=== PATIENT | male | born 1955 | race Caucasian/White ===

== ENCOUNTER → 2020-11-17 | Outpatient (CLI) | payer MEDICARE | LOC: LAB FS 14:01 | PROVIDERS: ATTEND Urology | DX: N42.9 Disorder of prostate, unspecified (principal) | CPT/HCPCS: 36415; 84153 ==

== ENCOUNTER 2023-05-30 16:08 | Observation (INO) | payer MEDICARE ==
[~2023-05-30] VITALS: Ht 167.7 cm; Wt 97.3 kg
[2023-05-30] MEDS ORDERED: NS IV 1000 ML 1,000 ML IV STA (16:26)
[2023-05-30] MEDS ORDERED: KETOROLAC INJ 15 MG/ML VIAL IVP STA (16:26)
--- NOTE | 2023-05-30 16:26 | ED Abdominal Pain ---
General Chief Complaint: Abdominal/GI Problems Stated Complaint: ABD PAIN Source of Information: Patient History of Present Illness Date Seen by Provider: May 30, 2023 Time Seen by Provider: 16:09 Initial Comments 68-year-old male presenting with complaints of abdominal pain and fever up to 101 this week. He has had pain for the last 5 days. When he went to the clinic today they sent him to the emergency department because he felt like he had appendicitis. He has pain in the right upper quadrant on exam. He states he had fever to 101 2 days ago. He did not have an appetite today and has not eaten since he had some soup night. He did drink some coffee this morning but has not eaten anything. He has had some diarrhea but none today. He denies any pain or burning with urination. He is up-to-date on vaccinations for flu, COVID, RSV. He had a swab for COVID and influenza that was negative through the clinic and he had a urinalysis that he reports they told him was negative. He denies any prior abdominal surgeries Timing/Duration: 5-6 Days Severity/Quality: Severe, Sharp Location: RUQ Activities at Onset: None Modifying Factors: Improves With Analgesics; Worsens With Movement, Worsens With Palpation Associated Symptoms: No Back Pain, No Chest Pain, No Diaphoresis; Fever/Chills; No Headache, No Heartburn, No Nausea/Vomiting, No Rash, No Shortness of Air, No Syncope, No Weakness Allergies and Home Medications Allergies Coded Allergies: No Known Drug Allergies (Unverified , 05/30/23) Patient Home Medication List Home Medication List Reviewed: Yes Review of Systems Review of Systems Constitutional: see HPI EENTM: No Symptoms Reported Respiratory: No Symptoms Reported Cardiovascular: No Symptoms Reported Gastrointestinal: See HPI Genitourinary: Denies Flank Pain, Denies Pain, Denies Urgency Musculoskeletal: no symptoms reported Skin: No rash Psychiatric/Neurological: Denies Headache Past Xeoemmt-Oubhgy-Floobw Hx Patient Social History Tobacco Use?: No Use of E-Cig and/or Vaping dev: No Substance use?: No Physical Exam Vital Signs Vital Signs - First Documented 05/30/23 16:12 Temp 37.6 Pulse 108 Resp 16 B/P (MAP) 140/81 (100) Pulse Ox 96 O2 Delivery Room Air Capillary Refill : Height/Weight/BMI Height: '" Weight: lbs. oz. kg; BMI Method: General Appearance: WD/WN, no apparent distress, obese HEENT: PERRL/EOMI, pharynx normal Neck: non-tender, full range of motion, supple Respiratory: chest non-tender, lungs clear, normal breath sounds, no respiratory distress, no accessory muscle use Cardiovascular: normal peripheral pulses, regular rate, rhythm Gastrointestinal: soft, no pulsatile mass, abnormal bowel sounds (hypoactive); No guarding, No rebound; tenderness (RUQ abdominal pain with positive Urbina's) Rectal: deferred Extremities: normal range of motion, non-tender, normal capillary refill Neurologic/Psychiatric: alert, oriented x 3 Skin: normal color, warm/dry Focused Exam Lactate Level 05/30/23 16:15: Lactic Acid Level 1.06 Lactic Acid Level Laboratory Tests Test 05/30/23 16:15 Lactic Acid Level 1.06 MMOL/L (0.50-2.00) Progress/Results/Core Measures Results/Orders Lab Results Laboratory Tests Test 05/30/23 16:15 Range/Units White Blood Count 16.9 H 4.3-11.0 10^3/uL Red Blood Count 4.05 L 4.30-5.52 10^6/uL Hemoglobin 12.6 L 13.3-17.7 g/dL Hematocrit 38 L 40-54 % Mean Corpuscular Volume 93 80-99 fL Mean Corpuscular Hemoglobin 31 25-34 pg Mean Corpuscular Hemoglobin Concent 34 32-36 g/dL Red Cell Distribution Width 13.3 10.0-14.5 % Platelet Count 778 H 130-400 10^3/uL Mean Platelet Volume 9.8 9.0-12.2 fL Immature Granulocyte % (Auto) 1 % Neutrophils (%) (Auto) 83 H 42-75 % Lymphocytes (%) (Auto) 6 L 12-44 % Monocytes (%) (Auto) 9 0-12 % Eosinophils (%) (Auto) 0 0-10 % Basophils (%) (Auto) 0 0-10 % Neutrophils # (Auto) 14.1 H 1.8-7.8 10^3/uL Lymphocytes # (Auto) 1.0 1.0-4.0 10^3/uL Monocytes # (Auto) 1.6 H 0.0-1.0 10^3/uL Eosinophils # (Auto) 0.1 0.0-0.3 10^3/uL Basophils # (Auto) 0.0 0.0-0.1 10^3/uL Immature Granulocyte # (Auto) 0.1 0.0-0.1 10^3/uL Neutrophils % (Manual) 85 % Lymphocytes % (Manual) 9 % Monocytes % (Manual) 6 % Sodium Level 132 L 135-145 MMOL/L Potassium Level 4.0 3.6-5.0 MMOL/L Chloride Level 96 L 98-107 MMOL/L Carbon Dioxide Level 23 21-32 MMOL/L Anion Gap 13 5-14 MMOL/L Blood Urea Nitrogen 16 7-18 MG/DL Creatinine 0.89 0.60-1.30 MG/DL Estimat Glomerular Filtration Rate 92 BUN/Creatinine Ratio 18 Glucose Level 114 H 70-105 MG/DL Lactic Acid Level 1.06 0.50-2.00 MMOL/L Calcium Level 9.7 8.5-10.1 MG/DL Corrected Calcium 9.9 8.5-10.1 MG/DL Total Bilirubin 0.5 0.1-1.0 MG/DL Aspartate Amino Transf (AST/SGOT) 22 5-34 U/L Alanine Aminotransferase (ALT/SGPT) 20 0-55 U/L Alkaline Phosphatase 73 40-136 U/L C-Reactive Protein 40.00 H <0.50 MG/DL Total Protein 7.4 6.4-8.2 GM/DL Albumin 3.7 3.2-4.5 GM/DL Lipase 17 8-78 U/L My Orders Orders - MIRANDA CAMACHO MD Comprehensive Metabolic Panel (05/30/23 16:20) Lipase (05/30/23 16:20) Ed Iv/Invasive Line Start (05/30/23 16:20) Cbc And Automated Diff (05/30/23 16:20) Ct Abdomen/Pelvis W (05/30/23 16:20) Blood Culture (05/30/23 16:20) Crp Fs (05/30/23 16:20) Lactic Acid Analyzer (05/30/23 16:20) Ns Iv 1000 Ml (Ns Iv 1000 Ml) (05/30/23 16:26) Ketorolac Injection (Ketorolac Injection (05/30/23 16:26) Manual Differential (05/30/23 16:15) Iohexol Injection (Omnipaque 350 Mg/Ml 1 (05/30/23 16:45) Received Contrast (Hold Metformin- Contr (05/30/23 16:45) Ns (Ivpb) 100 Ml (Sodium Chloride 0.9% 1 (05/30/23 16:45) Ed Admission (Communication) (05/30/23 17:28) Medications Given in ED Current Medications Medications Dose Ordered Sig/David Route Start Time Stop Time Status Last Admin Dose Admin Iohexol 100 ml ONCE ONCE IV 05/30/23 16:45 05/30/23 16:46 DC 05/30/23 16:59 100 ML Sodium Chloride 100 ml ONCE ONCE IV 05/30/23 16:45 05/30/23 16:46 DC 05/30/23 16:59 100 ML Vital Signs/I&O 05/30/23 05/30/23 05/30/23 16:12 17:06 18:13 Temp 37.6 38.2 Pulse 108 107 103 Resp 16 18 18 B/P (MAP) 140/81 (100) 131/71 (91) 130/65 Pulse Ox 96 94 94 O2 Delivery Room Air Room Air Room Air Progress Progress Note #1: Progress Note Differential diagnosis includes viral syndrome, cholecystitis, cholelithiasis, colitis, diverticulitis, appendicitis, gastritis. Establish peripheral IV access and send labs for complete blood count, comprehen sive metabolic profile, blood cultures, lactic acid, CRP, lipase. Since he had urine and COVID/flu swab done at the clinic will not repeat these. Obtain CT scan of the abdomen and pelvis with IV contrast to evaluate for possible intra- abdominal pathology. Administer normal saline 1 L IV fluid bolus for hydration, Toradol 15 mg IV for pain. Progress Note #2: Time: 16:43 Progress Note Complete blood count shows elevated white blood cell count of 16.9 thousand. ANC hemoglobin is low normal at 12.6. He does have elevated platelets to 778 which could be a reactive process. His automated differential shows 83% neutrophils and 6% lymphocytes Progress Note #3: Time: 17:12 Progress Note Comprehensive metabolic profile does not show acute significant electrolyte abnormality. Lactic acid is normal at 1.06 and CRP is greatly elevated at 40. Lipase and LFTs are not elevated. On my personal review and interpretation of CT scan of abdomen/pelvis with IV contrast he has pericholecystic fluid, edema and dilated gallbladder with a few calcification seen within it. Waiting on Radiology interpretation. Pain improved from Toradol but still present, especially with palpation. 1722 d/w Dr. Agee, wind commissioning technician surgeon. Reviewed patient history and presentation with findings for acute cholecystitis on his CT scan. Radiology report is still pending. He accepted him for admission and will check with Dr. Oconnor directly to see about consult versus adequate with her. She is covering for the [facility] service and the patient follows with Dr. Fry. He voiced that he would be ok with patient being driven down by family rather than having to wait on EMS for transport. He did not feel like he needed antibiotics emergently here but could arrange for those after he got to room in [place]. 1726 D/w Dr. Oconnor hospitalist for [facility] and she will admit the patient to [facility] service as observation patient with plans for surgery for his gallbladder. She will place Queued orders in the system. Diagnostic Imaging Diagonstic Imaging: CT Plain Films/CT/US/NM/MRI: abdomen, pelvis Comments [facility]. [place], [place] NAME: [facility] REC#: [id number] PT STATUS: REG ER : 1955 PHYSICIAN: MIRANDA CAMACHO MD ADMIT DATE: 05/30/23/ER FS Signed Date of Exam:05/30/23 CT ABDOMEN/PELVIS W PROCEDURE: CT abdomen and pelvis with contrast. TECHNIQUE: Multiple contiguous axial images were obtained through the abdomen and pelvis after administration of intravenous contrast. Auto Exposure Controls were utilized during the CT exam to meet ALARA standards for radiation dose reduction. All CT scans use one or more of the following dose optimizing techniques: automated exposure control, MA and/or KvP adjustment based on patient size and exam type or iterative reconstruction. INDICATION: Right-sided abdominal pain, fever. COMPARISON: None available. FINDINGS: Thin calcified pleural plaques are noted bilaterally, particularly on the right. Pericardial calcifications are present. Mild right basilar scarring and/or atelectasis. The gallbladder is abnormally distended measuring near 13 cm. This is associated with gallstones and fat stranding about the gallbladder. Diffusely decreased density throughout the liver. The spleen is unremarkable. The adrenal glands are unremarkable. The pancreas is unremarkable. Mild bilateral perinephric fat stranding. 5 mm calculus within the inferior pole of the left kidney, nonobstructing. 4.4 cm peripherally calcified hypodensity is noted within the inferior pole of the left kidney. No hydroureteronephrosis. Moderate vascular calcifications without aneurysmal dilatation of the abdominal aorta. The appendix is unremarkable. The urinary bladder is unremarkable. Moderate-sized right and small-sized left fat-containing inguinal hernias. Colonic diverticulosis without CT evidence of diverticulitis. No bowel obstruction or pneumatosis. No significant adenopathy, free air, or free fluid within the abdomen or pelvis. Scattered osseous degenerative changes without acute osseous abnormality. IMPRESSION: Findings concerning for acute cholecystitis. Recommend clinical correlation. If there remains clinical uncertainty, further evaluation with right upper quadrant ultrasound could be obtained. Nonobstructing left renal calculus. 4.4 cm peripherally calcified hypodensity involving the left kidney, felt to relate to a Bosniak 2F cyst. Recommend follow-up CT in six months. Calcified pleural plaques and pericardial plaques, potentially related to prior asbestos exposure or sequelae of prior pericarditis/pleural effusions. Mild fatty infiltration of the liver. Dictated by: Dictated on workstation # [id number] Dict: 05/30/23 171 Trans: 05/30/23 173 [id number] [id number] Interpreted by: TASIA CALABRESE MD Electronically signed by: TASIA CALABRESE MD 05/30/231730 Reviewed: Reviewed by Me Departure Communication (Admissions) Time/Spoke to Admitting Phy: 17:23 d/w Dr. Agee, wind commissioning technician surgeon. Reviewed patient history and presentation with findings for acute cholecystitis on his CT scan. Radiology report is still pending. He accepted him for admission and will check with Dr. Oconnor directly to see about consult versus adequate with her. She is covering for the [facility] service and the patient follows with Dr. Fry. 1727 D/w Dr. Oconnor hospitalist for [facility] and she will admit the patient to [facility] service as observation patient with plans for surgery for his gallbladder. She will place Queued orders in the system. Impression Primary Impression: Acute cholecystitis Additional Impression: Right upper quadrant abdominal pain Disposition: 30 STILL A PATIENT Condition: Stable Admissions Decision to Admit Reason: Admit from ER (General) Decision to Admit/Date: May 30, 2023 Time/Decision to Admit Time: 17:23 Departure-Patient Inst. Referrals: WANAD FRY MD (PCP/Family) Primary Care Physician MIRANDA CAMACHO MD May 30, 2023 16:25
[2023-05-30 16:27] LABS: BASOPHILS % (AUTO) 0 % (0-10); EOSINOPHILS # (AUTO) 0.1 10^3/uL (0.0-0.3); EOSINOPHILS % (AUTO) 0 % (0-10); HEMATOCRIT 38 % (40-54); HEMOGLOBIN 12.6 g/dL (13.3-17.7); LYMPHOCYTES % (AUTO) 6 % (12-44); MEAN CORPUSCULAR HEMOGLOBIN 31 pg (25-34); MEAN CORPUSCULAR HGB CONC 34 g/dL (32-36); MEAN CORPUSCULAR VOLUME 93 fL (80-99); MEAN PLATELET VOLUME 9.8 fL (9.0-12.2); MONOCYTES # (AUTO) 1.6 10^3/uL (0.0-1.0); MONOCYTES % (AUTO) 9 % (0-12); NEUTROPHILS # (AUTO) 14.1 10^3/uL (1.8-7.8); NEUTROPHILS % (AUTO) 83 % (42-75); PLATELET COUNT 778 10^3/uL (130-400); WHITE BLOOD COUNT 16.9 10^3/uL (4.3-11.0)
[2023-05-30 16:45] LABS: BILIRUBIN,TOTAL 0.5 MG/DL (0.1-1.0); CALCIUM 9.7 MG/DL (8.5-10.1)
[2023-05-30] MEDS ORDERED: HOLD METFORMIN - RECEIVED CONTRAST 20 ML VIAL IV SCH (16:45)
[2023-05-30] MEDS ORDERED: IOHEXOL 350 MG/ML 100 ML (OMNIPAQUE 350) VIAL IV ONE (16:45)
[2023-05-30] MEDS ORDERED: NS 100 ML (IVPB) BAG IV ONE (16:45)
[2023-05-30 16:48] LABS: LYMPHOCYTES % (MANUAL) 9 %; MONOCYTES % (MANUAL) 6 %; NEUTROPHILS % (MANUAL) 85 %
[2023-05-30 16:50] LABS: CREATININE SERUM 0.89 MG/DL (0.60-1.30)
[2023-05-30 16:51] LABS: ALBUMIN 3.7 GM/DL (3.2-4.5); TOTAL PROTEIN 7.4 GM/DL (6.4-8.2)
--- NOTE | 2023-05-30 17:21 | Diagnostic Imaging Report ---
PROCEDURE: CT abdomen and pelvis with contrast. TECHNIQUE: Multiple contiguous axial images were obtained through the abdomen and pelvis after administration of intravenous contrast. Auto Exposure Controls were utilized during the CT exam to meet ALARA standards for radiation dose reduction. All CT scans use one or more of the following dose optimizing techniques: automated exposure control, MA and/or KvP adjustment based on patient size and exam type or iterative reconstruction. INDICATION: Right-sided abdominal pain, fever. COMPARISON: None available. FINDINGS: Thin calcified pleural plaques are noted bilaterally, particularly on the right. Pericardial calcifications are present. Mild right basilar scarring and/or atelectasis. The gallbladder is abnormally distended measuring near 13 cm. This is associated with gallstones and fat stranding about the gallbladder. Diffusely decreased density throughout the liver. The spleen is unremarkable. The adrenal glands are unremarkable. The pancreas is unremarkable. Mild bilateral perinephric fat stranding. 5 mm calculus within the inferior pole of the left kidney, nonobstructing. 4.4 cm peripherally calcified hypodensity is noted within the inferior pole of the left kidney. No hydroureteronephrosis. Moderate vascular calcifications without aneurysmal dilatation of the abdominal aorta. The appendix is unremarkable. The urinary bladder is unremarkable. Moderate-sized right and small-sized left fat-containing inguinal hernias. Colonic diverticulosis without CT evidence of diverticulitis. No bowel obstruction or pneumatosis. No significant adenopathy, free air, or free fluid within the abdomen or pelvis. Scattered osseous degenerative changes without acute osseous abnormality. IMPRESSION: Findings concerning for acute cholecystitis. Recommend clinical correlation. If there remains clinical uncertainty, further evaluation with right upper quadrant ultrasound could be obtained. Nonobstructing left renal calculus. 4.4 cm peripherally calcified hypodensity involving the left kidney, felt to relate to a Bosniak 2F cyst. Recommend follow-up CT in six months. Calcified pleural plaques and pericardial plaques, potentially related to prior asbestos exposure or sequelae of prior pericarditis/pleural effusions. Mild fatty infiltration of the liver. Dictated by: Dictated on workstation # [id number]
[2023-05-30 20:07] VITALS: BP 128/71
[2023-05-30] MEDS ORDERED: diphenhydrAMINE INJ 50 MG/ML VIAL IVP PRN (20:15)
[2023-05-30] MEDS ORDERED: oxyCODONE IMMEDIATE RELEASE 5 MG TABLET PO PRN (20:15)
[2023-05-30] MEDS ORDERED: BISACODYL 10 MG SUPPOSITORY PR PRN (20:15)
[2023-05-30] MEDS ORDERED: ONDANSETRON INJECTION 4 MG/2 ML (SDV) IV PRN (20:15)
[2023-05-30] MEDS ORDERED: MELATONIN 3 MG TABLET PO PRN (20:15)
[2023-05-30] MEDS ORDERED: ONDANSETRON 4 MG ORAL DISSOLVE TABLET PO PRN (20:15)
[2023-05-30] MEDS ORDERED: diphenhydrAMINE 25 MG TABLET PO PRN (20:15)
[2023-05-30] MEDS ORDERED: LACTULOSE SYRUP 10GM/15ML 30ML UDC PO PRN (20:15)
[2023-05-30] MEDS ORDERED: ANTACID SUSPENSION 30 ML UDC PO PRN (20:15)
[2023-05-30] MEDS ORDERED: NS IV 1000 ML 1,000 ML ONE (20:43)
[2023-05-30] MEDS: NS IV 1000 ML 1,000 ML IV SCH (20:56)
[2023-05-30] MEDS ORDERED: PIPERACILLIN/Tazobactam 4.5 GM in NS (IVPB) 100 ML 100 ML IV ONE (21:30)
[2023-05-30] MEDS: ACETAMINOPHEN 325 MG TABLET PO PRN (21:44)
[2023-05-30] MEDS: HYDROmorphone INJECTION 2 MG/ML VIAL IV PRN (22:50)
[2023-05-30] MEDS: DOCUSATE SODIUM 100 MG CAPSULE PO SCH (22:53)
[2023-05-30 23:18] VITALS: BP 118/68
[2023-05-30] MEDS ORDERED: FENO160T12 PO (23:38)
[2023-05-30] MEDS ORDERED: TMSL.4C PO (23:40)
[2023-05-30] MEDS ORDERED: TRIA1TAB3 PO (23:40)
[2023-05-30] MEDS ORDERED: FLUT9.9S NS (23:41)
[2023-05-30] MEDS ORDERED: SIMV40TA25 PO (23:41)
[2023-05-31] VITALS (12 sets, daily range): BP systolic 118–146; BP diastolic 63–87
[2023-05-31] MEDS: PIPERACILLIN/Tazobactam 4.5 GM in NS (IVPB) 100 ML 100 ML IV SCH ×3 (03:35→19:37)
[2023-05-31] MEDS: HYDROmorphone INJECTION 2 MG/ML VIAL IV PRN ×3 (03:35→16:21)
[2023-05-31] MEDS: NS IV 1000 ML 1,000 ML IV SCH ×3 (03:36→19:36)
[2023-05-31 05:53] LABS: BASOPHILS % (AUTO) 0 % (0-10); EOSINOPHILS # (AUTO) 0.1 10^3/uL (0.0-0.3); EOSINOPHILS % (AUTO) 1 % (0-10); HEMATOCRIT 34 % (40-54); HEMOGLOBIN 11.2 g/dL (13.3-17.7); LYMPHOCYTES # (AUTO) 1.1 10^3/uL (1.0-4.0); LYMPHOCYTES % (AUTO) 10 % (12-44); MEAN CORPUSCULAR HEMOGLOBIN 30 pg (25-34); MEAN CORPUSCULAR HGB CONC 33 g/dL (32-36); MEAN CORPUSCULAR VOLUME 93 fL (80-99); MONOCYTES # (AUTO) 1.1 10^3/uL (0.0-1.0); MONOCYTES % (AUTO) 9 % (0-12); NEUTROPHILS # (AUTO) 9.1 10^3/uL (1.8-7.8); NEUTROPHILS % (AUTO) 79 % (42-75); PLATELET COUNT 723 10^3/uL (130-400); WHITE BLOOD COUNT 11.6 10^3/uL (4.3-11.0)
[2023-05-31 06:08] LABS: ALBUMIN 3.2 GM/DL (3.2-4.5); POTASSIUM 3.6 MMOL/L (3.6-5.0)
[2023-05-31 06:09] LABS: CALCIUM 8.7 MG/DL (8.5-10.1)
[2023-05-31 06:10] LABS: TOTAL PROTEIN 6.3 GM/DL (6.4-8.2)
[2023-05-31 06:12] LABS: BILIRUBIN,TOTAL 0.8 MG/DL (0.1-1.0)
[2023-05-31 06:14] LABS: CREATININE SERUM 0.85 MG/DL (0.60-1.30)
--- NOTE | 2023-05-31 08:02 | History & Physical-Hospitalist ---
LINWOOD JOSUE MD,RESIDENT 05/31/23 0802: History of Present Illness HPI/Chief Complaint CC: abdominal pain and fever HPI: Pt is a 68-year-old male who presents to the ED with complaints of abdominal pain and fever up to 101 this week. He has had the abdominal pain for the last 5 days. When he went to the clinic 05/30, they sent him to the emergency department because he felt like he had appendicitis. He has pain in the right upper quadrant on exam. He states he had fever to 101 3 days ago. He has decreased PO intake over the lat few days for decreased appetite and abdominal pain. He has had some diarrhea but none today. He denies any pain or burning with urination. He is up-to-date on vaccinations for flu, COVID, RSV. He had a swab for COVID and influenza that was negative through the clinic and he had a urinalysis that he reports they told him was negative. He denies any prior abdominal surgeries. Will admit for further management. Source: patient Date Seen 05/31/23 Time Seen by a Provider: 08:00 Attending Physician Alfredo Arceo MD PCP Admitting Physician: Trinity Ramos DO Attending Physician: Trinity Ramos DO Referring Physician Date of Admission May 30, 2023 at 19:46 Home Medications & Allergies Home Medications Reviewed patient Home Medication Reconciliation performed by pharmacy medication reconciliations vending service technician and/or nursing. Patients Allergies have been reviewed. Allergies Allergies Coded Allergies No Known Drug Allergies ([id number]/20/23) Past Jiwgfcp-Drqley-Oecwra Hx Patient Social History Tobacco Use?: No Smoking Status: Never a Smoker Smokeless Tobacco Frequency: Never a User Use of E-Cig and/or Vaping dev: No Substance use?: No Alcohol Use?: No Pt feels they are or have been: No Immunizations Up To Date Date of Influenza Vaccine: May 22, 2023 First/Initial COVID19 Vaccinat: vaccinated Current Status Advance Directives: Yes Advance Directive Location: Home Communicates: Verbally Primary Language: Arabic Preferred Spoken Language: Arabic Is interpretation needed?: No Implanted or Applied Medical D: Orthopedic hardware Review of Systems Constitutional: no symptoms reported EENTM: no symptoms reported Respiratory: no symptoms reported Cardiovascular: no symptoms reported Gastrointestinal: abdominal pain (RUQ), diarrhea, loss of appetite Genitourinary: no symptoms reported Musculoskeletal: no symptoms reported Skin: no symptoms reported Psychiatric/Neurological: No Symptoms Reported Physical Exam Physical Exam Vital Signs Vital Signs - First Documented 05/30/23 05/31/23 16:12 07:58 Temp 37.6 Pulse 108 Resp 16 B/P (MAP) 140/81 (100) Pulse Ox 96 O2 Delivery Room Air O2 Flow Rate 0.00 Capillary Refill : Less Than 3 Seconds Height, Weight, BMI Height: '" Weight: lbs. oz. kg; 34.59 BMI Method: General Appearance: No Apparent Distress Eyes: Bilateral Eye EOMI HEENT: Normal ENT Inspection Neck: Full Range of Motion Respiratory: Lungs Clear, Normal Breath Sounds, No Accessory Muscle Use, No Respiratory Distress Cardiovascular: Regular Rate, Rhythm Gastrointestinal: Abnormal Bowel Sounds (hyperactive), Distended, Tenderness Extremity: Normal Range of Motion, Non Tender Neurologic/Psychiatric: Alert, Oriented x3, Normal Mood/Affect Skin: Warm/Dry Results Results/Procedures Labs Laboratory Tests 05/30/23 16:15 05/31/23 05:15 Patient resulted labs reviewed. Assessment/Plan Admission Diagnosis Acute cholecystitis Admission Status: Inpatient Order (span 2 midnights) Reason for Inpatient Admission: Acute cholecystitis Assessment and Plan Acute cholecystitis RUQ abdominal pain PLAN: Zosyn CT abd/pelv - acute cholecystitis General surgery consult - lap juliann 05/31 NPO IVF Pain control Daily vitals to monitor for fever Diagnosis/Problems Diagnosis/Problems (1) Acute cholecystitis Status: Acute (2) Right upper quadrant abdominal pain Status: Acute Clinical Quality Measures DVT/VTE Risk/Contraindication: Contraindications-Pharm: Other *list below* Other: surgery TRINITY RAMOS DO 06/01/23 0611: History of Present Illness HPI/Chief Complaint Chief complaint: Acute cholecystitis HPI: This is a 68-year-old male who presented to [place] ER with fever and abdominal pain found to have acute cholecystitis. He will have cholecystectomy today. IV antibiotics maintained. Labs remained stable. Source: patient Exam Limitations: no limitations Past Pfsaxgw-Emnbys-Eboerr Hx Patient Social History Marrital Status: Employed/Student: retired Smoking Status: Never a Smoker Past Medical History High Cholesterol, Hypertension Review of Systems Constitutional: see HPI, fever Gastrointestinal: abdominal pain (RUQ) Physical Exam Physical Exam General Appearance: No Apparent Distress, Chronically ill, Obese Eyes: Right Eye Normal Inspection, Right Eye PERRL HEENT: PERRL/EOMI, Normal ENT Inspection, Pharynx Normal, Moist Mucous Membranes Neck: Full Range of Motion, Normal Inspection, Non Tender Respiratory: Chest Non Tender, Lungs Clear, Normal Breath Sounds, No Accessory Muscle Use, No Respiratory Distress Cardiovascular: Regular Rate, Rhythm, No Edema, No Gallop, No JVD, No Murmur, Normal Peripheral Pulses Gastrointestinal: Normal Bowel Sounds, No Organomegaly, No Pulsatile Mass, Abnormal Bowel Sounds (hyperactive), Distended, Tenderness Back: Normal Inspection, No CVA Tenderness, No Vertebral Tenderness Extremity: Normal Capillary Refill, Normal Inspection, Normal Range of Motion, Non Tender, No Calf Tenderness, No Pedal Edema Neurologic/Psychiatric: Alert, Oriented x3, No Motor/Sensory Deficits, Normal Mood/Affect Skin: Normal Color, Warm/Dry Lymphatic: No Adenopathy Assessment/Plan Admission Diagnosis Assessment: Acute cholecystitis Abdominal pain Sepsis Hypertension Hyperlipidemia Elevated BMI Plan: Cholecystectomy IV antibiotics Supportive care I personally performed the aguero portions of the visit, discussed case with resident and concur with resident documentation of history, physical exam, assessment and treatment plan unless otherwise noted. Admission Status: Observation LINWOOD JOSUE MD,RESIDENT May 31, 2023 08:02 TRINITY RAMOS DO Jun 01, 2023 06:11
[2023-05-31] MEDS ORDERED: LIDOCAINE PF 2% 5 ML VIAL ONE (09:07)
[2023-05-31] MEDS ORDERED: ROCURONIUM 50 MG/5 ML VIAL IV ONE (09:07)
[2023-05-31] MEDS ORDERED: fentaNYL INJECTION 100 MCG/2 ML VIAL ONE (09:07)
[2023-05-31] MEDS ORDERED: MIDAZOLAM INJ 2 MG/2 ML VIAL ONE (09:07)
[2023-05-31] MEDS ORDERED: ONDANSETRON INJECTION 4 MG/2 ML (SDV) ONE (09:07)
[2023-05-31] MEDS ORDERED: proPOfol INJECTION 200 MG/20 ML VIAL IV ONE (09:07)
[2023-05-31] MEDS ORDERED: dexAMETHasone INJ 10 MG/ML 1 ML VIAL ONE (09:07)
[2023-05-31] MEDS ORDERED: SEVOFLURANE (ULTANE) 15 ML INHAL SOLN ONE ×2 (09:07→12:33)
[2023-05-31] MEDS: DOCUSATE SODIUM 100 MG CAPSULE PO SCH ×2 (09:18→19:36)
[2023-05-31] MEDS ORDERED: LIDOCAINE 2% w/EPI 1:100,000 20 ML VIAL ONE (10:07)
--- NOTE | 2023-05-31 10:19 | Consultation - Surgery ---
History of Present Illness History of Present Illness Patient Consulted On(jabari/time) 05/31/23 10:13 Time Seen by Provider: 09:57 History of Present Illness Surgery asked to consult regarding Abdominal pain. HPI per ED: 68-year-old male presenting with complaints of abdominal pain and fever up to 101 this week. He has had pain for the last 5 days. When he went to the clinic today they sent him to the emergency department because he felt like he had appendicitis. He has pain in the right upper quadrant on exam. He states he had fever to 101 2 days ago. He did not have an appetite today and has not eaten since he had some soup night. He did drink some coffee this morning but has not eaten anything. He has had some diarrhea but none today. He denies any pain or burning with urination. He is up-to-date on vaccinations for flu, COVID, RSV. He had a swab for COVID and influenza that was negative through the clinic and he had a urinalysis that he reports they told him was negative. He denies any prior abdominal surgeries Timing/Duration: 5-6 Days Severity/Quality: Severe, Sharp Location: RUQ Activities at Onset: None Modifying Factors: Improves With Analgesics; Worsens With Movement, Worsens With Palpation Associated Symptoms: No Back Pain, No Chest Pain, No Diaphoresis; Fever/Chills; No Headache, No Heartburn, No Nausea/Vomiting, No Rash, No Shortness of Air, No Syncope, No Weakness When I spoke to pt he was still having RUQ pain, but the RLQ pain was gone. This started Friday and he thought he had caused it on Friday when he had been spreading 50lb bags of rock around his yard. However, it got progressively worse and was associated with decreased appetite and diarrhea. He stated nothing made it worse, not foods and he was avoiding doing any more lifting. He rated the pain as 5 out of 10 today, worse when abdomen was palpated. At its worst pain was close to 8. Allergies and Home Medications Allergies Coded Allergies: No Known Drug Allergies (Unverified , 05/30/23) Patient Home Medication List Home Medication List Reviewed: Yes Fenofibrate (Fenofibrate) 160 Mg Tablet, 160 MG PO DAILY, (Reported) Entered as Reported by: SHERI BECKER on 05/30/23 4138 Last Action: New Order Fluticasone Propionate (Flonase Allergy Relief) 50 Mcg/Actuation [place].susp, 1 SPRAY NS DAILY, (Reported) Entered as Reported by: SHERI BECKER on 05/30/232340 Last Action: New Order Simvastatin (Simvastatin) 40 Mg Tablet, 40 MG PO HS, (Reported) Entered as Reported by: SHERI BECKER on 05/30/232340 Last Action: New Order Tamsulosin HCl (Flomax) 0.4 Mg Cap, 0.4 MG PO DAILY, (Reported) Entered as Reported by: SHERI BECKER on 05/30/232339 Last Action: New Order Triamterene/Hydrochlorothiazid (Triamterene-Hctz 37.5-25 mg Tb) 37.5 Mg-25 Mg Tablet, 1 EACH PO DAILY, (Reported) Entered as Reported by: SHERI BECKER on 05/30/232339 Last Action: New Order Past Rolazgt-Gpnxkh-Qrpkdi Hx Patient Social History Smoking Status: Never a Smoker Alcohol Use?: No Immunizations Up To Date Date of Influenza Vaccine: May 22, 2023 Surgeries History of Surgeries: Yes Surgeries: Orthopedic (knees) Respiratory History of Respiratory Disorde: No Cardiovascular History of Cardiac Disorders: Yes Cardiac Disorders: High Cholesterol, Hypertension Neurological History of Neurological Disord: No Genitourinary History of Genitourinary Disor: Yes Genitourinary Disorders: Benign Prostatic Hyperpl Gastrointestinal History of Gastrointestinal Di: No Musculoskeletal History of Musculoskeletal Dis: Yes Musculoskeletal Disorders: Arthritis Endocrine History of Endocrine Disorders: No HEENT History of HEENT Disorders: No Loss of Vision: Denies Hearing Impairment: Denies Cancer History of Cancer: No Psychosocial History of Psychiatric Problem: No Integumentary History of Skin or Integumenta: No Family Medical History Significant Family History: Cancer (Father had Lymphoma and Brother had Testicular) Review of Systems-General Constitutional: malaise, weakness EENTM: No blurred vision, No double vision, No epistaxis Respiratory: No cough, No dyspnea on exertion, No short of breath Cardiovascular: No chest pain, No palpitations Gastrointestinal: abdominal pain, diarrhea, loss of appetite, nausea; No vomiting Genitourinary: No dysuria, No hematuria; hesitancy Musculoskeletal: joint pain, joint swelling, muscle stiffness Skin: No change in color, No change in hair/nails Psychiatric/Neurological: Denies Anxiety, Denies Depressed, Denies Seizure, Denies Tremors Physical Exam-General Problems Physical Exam Vital Signs Vital Signs - First Documented 05/30/23 05/31/23 16:12 07:58 Temp 37.6 Pulse 108 Resp 16 B/P (MAP) 140/81 (100) Pulse Ox 96 O2 Delivery Room Air O2 Flow Rate 0.00 Capillary Refill : Less Than 3 Seconds General Appearance: mild distress (secondary to pain), obese Eyes: Bilateral Eye PERRL, Bilateral Eye EOMI HEENT: pharynx normal; No scleral icterus (R), No scleral icterus (L) Neck: non-tender, supple Respiratory: lungs clear, normal breath sounds, no respiratory distress, no accessory muscle use Cardiovascular: no murmur, tachycardia Gastrointestinal: soft, no organomegaly, rebound, tenderness (RUQ), hernia (small umbilical) Back: no CVA tenderness, no vertebral tenderness Extremities: no pedal edema, no calf tenderness Neurologic/Psychiatric: plastic frame inserter II-XII nml as tested, alert, normal mood/affect, oriented x 3 Skin: normal color, warm/dry Lymphatic: no adenopathy (neck, axilla or groin) Data Review Labs Laboratory Tests 05/30/23 16:15: White Blood Count 16.9H, Red Blood Count 4.05L, Hemoglobin 12.6L, Hematocrit 38L , Mean Corpuscular Volume 93, Mean Corpuscular Hemoglobin 31, Mean Corpuscular Hemoglobin Concent 34, Red Cell Distribution Width 13.3, Platelet Count 778H, Mean Platelet Volume 9.8, Immature Granulocyte % (Auto) 1, Neutrophils (%) (Auto) 83H, Lymphocytes (%) (Auto) 6L, Monocytes (%) (Auto) 9, Eosinophils (%) (Auto) 0, Basophils (%) (Auto) 0, Neutrophils # (Auto) 14.1H, Lymphocytes # (Auto) 1.0, Monocytes # (Auto) 1.6H, Eosinophils # (Auto) 0.1, Basophils # (Auto) 0.0, Immature Granulocyte # (Auto) 0.1, Neutrophils % (Manual) 85, Lymphocytes % (Manual) 9, Monocytes % (Manual) 6, Sodium Level 132L, Potassium L evel 4.0, Chloride Level 96L, Carbon Dioxide Level 23, Anion Gap 13, Blood Urea Nitrogen 16, Creatinine 0.89, Estimat Glomerular Filtration Rate 92, BUN/Creatinine Ratio 18, Glucose Level 114H, Lactic Acid Level 1.06, Calcium Level 9.7, Corrected Calcium 9.9, Total Bilirubin 0.5, Aspartate Amino Transf (AST/SGOT) 22, Alanine Aminotransferase (ALT/SGPT) 20, Alkaline Phosphatase 73, C-Reactive Protein 40.00H, Total Protein 7.4, Albumin 3.7, Lipase 17 05/31/23 05:15: White Blood Count 11.6H, Red Blood Count 3.68L, Hemoglobin 11.2L, Hematocrit 34L , Mean Corpuscular Volume 93, Mean Corpuscular Hemoglobin 30, Mean Corpuscular Hemoglobin Concent 33, Red Cell Distribution Width 13.6, Platelet Count 723H, Mean Platelet Volume 10.0, Immature Granulocyte % (Auto) 1, Neutrophils (%) (Auto) 79H, Lymphocytes (%) (Auto) 10L, Monocytes (%) (Auto) 9, Eosinophils (%) (Auto) 1, Basophils (%) (Auto) 0, Neutrophils # (Auto) 9.1H, Lymphocytes # (Auto) 1.1, Monocytes # (Auto) 1.1H, Eosinophils # (Auto) 0.1, Basophils # (Auto) 0.0, Immature Granulocyte # (Auto) 0.1, Sodium Level 136, Potassium Level 3.6, Chloride Level 105, Carbon Dioxide Level 19L, Anion Gap 12, Blood Urea Nitrogen 21H, Creatinine 0.85, Estimat Glomerular Filtration Rate 93, BU N/Creatinine Ratio 25, Glucose Level 89, Calcium Level 8.7, Corrected Calcium 9.3, Total Bilirubin 0.8, Aspartate Amino Transf (AST/SGOT) 26, Alanine Aminotransferase (ALT/SGPT) 19, Alkaline Phosphatase 53, Total Protein 6.3L, Albumin 3.2 Radiology Date of Exam:05/30/23 CT ABDOMEN/PELVIS W PROCEDURE: CT abdomen and pelvis with contrast. TECHNIQUE: Multiple contiguous axial images were obtained through the abdomen and pelvis after administration of intravenous contrast. Auto Exposure Controls were utilized during the CT exam to meet ALARA standards for radiation dose reduction. All CT scans use one or more of the following dose optimizing techniques: automated exposure control, MA and/or KvP adjustment based on patient size and exam type or iterative reconstruction. INDICATION: Right-sided abdominal pain, fever. COMPARISON: None available. FINDINGS: Thin calcified pleural plaques are noted bilaterally, particularly on the right. Pericardial calcifications are present. Mild right basilar scarring and/or atelectasis. The gallbladder is abnormally distended measuring near 13 cm. This is associated with gallstones and fat stranding about the gallbladder. Diffusely decreased density throughout the liver. The spleen is unremarkable. The adrenal glands are unremarkable. The pancreas is unremarkable. Mild bilateral perinephric fat stranding. 5 mm calculus within the inferior pole of the left kidney, nonobstructing. 4.4 cm peripherally calcified hypodensity is noted within the inferior pole of the left kidney. No hydroureteronephrosis. Moderate vascular calcifications without aneurysmal dilatation of the abdominal aorta. The appendix is unremarkable. The urinary bladder is unremarkable. Moderate-sized right and small-sized left fat-containing inguinal hernias. Colonic diverticulosis without CT evidence of diverticulitis. No bowel obstruction or pneumatosis. No significant adenopathy, free air, or free fluid within the abdomen or pelvis. Scattered osseous degenerative changes without acute osseous abnormality. IMPRESSION: Findings concerning for acute cholecystitis. Recommend clinical correlation. If there remains clinical uncertainty, further evaluation with right upper quadrant ultrasound could be obtained. Nonobstructing left renal calculus. 4.4 cm peripherally calcified hypodensity involving the left kidney, felt to relate to a Bosniak 2F cyst. Recommend follow-up CT in six months. Calcified pleural plaques and pericardial plaques, potentially related to prior asbestos exposure or sequelae of prior pericarditis/pleural effusions. Mild fatty infiltration of the liver. Dictated by: Dictated on workstation # [id number] Dict: 05/30/23 1711 Trans: 05/30/23 173 AS6 [id number] Interpreted by: TASIA CALABRESE MD Electronically signed by: TASIA CALABRESE MD 05/30/23 173 Assessment/Plan Assessment/Plan Assessment/Plan Acute Cholecystitis with Cholelithiasis HTN Pt was admitted started on IV fluids, IV ABX, NPO, pain medications and anti- emetics as needed. I spoke with the ER physician and reviewed the CT films myself. It looks like a bad gallbladder. I spoke with the pt and his regarding next steps; he could try ABX and wait, but I think he needs to go to surgery. They agreed with surgery; he "wants to get it out, that's why I came here". I went over the procedure Laparoscopic Cholecystectomy, possible cholangiogram and possible open. We discussed risks and complications not limited to pain, bleeding, infection, scar damage to bowel or bile ducts and need for further procedure. All questions answered to there satisfaction. I told them that it may even be necrotic, but if surgery goes well he can probably go home today. Clinical Quality Measures DVT/VTE Risk/Contraindication: Contraindications-Pharm: Other *list below* Other: surgery RHODA TINOCO DO May 31, 2023 10:19
[2023-05-31] MEDS: LACTATED RINGERS 1,000 ML 1,000 ML IV PRN ×2 (10:24→11:31)
[2023-05-31] MEDS ORDERED: LIDOCAINE 2% w/EPI 1:100,000 20 ML VIAL INJ ONE (11:01)
[2023-05-31] MEDS ORDERED: IOHEXOL 300 MG/ML 30 ML (OMNIPAQUE 300) VIAL INJ ONE (11:02)
[2023-05-31] MEDS ORDERED: GLYCOPYRROLATE INJ 0.2 MG/ML 2 ML VIAL ONE (12:26)
[2023-05-31] MEDS ORDERED: NEOSTIGMINE 1 MG/1ML 10 ML VIAL ONE (12:26)
--- NOTE | 2023-05-31 12:31 | Progress Note-Post Operative ---
Post-Operative Progess Note Surgeon (s)/Director [facility] (s) Surgeon RHODA TINOCO DO Director [facility]: Wes Pre-Operative Diagnosis Acute Cholecysitis with Cholelithiasis Post-Operative Diagnosis Same with obstruction Procedure & Operative Findings Date of Procedure 05/31/23 Procedure Performed/Findings Lap juliann with attempted IOC Anesthesia Type GET Estimated Blood Loss Estimated blood loss (mL): appx 50ml Specimens/Packing Specimens Removed GB and contents RHODA TINOCO DO May 31, 2023 12:31
--- NOTE | 2023-05-31 12:54 | Anesthesia-General Post-Op ---
General Patient Condition Mental Status/LOC: Same as Preop Cardiovascular: Satisfactory Nausea/Vomiting: Absent Respiratory: Satisfactory Pain: Controlled Complications: Absent Post Op Complications Complications None Follow Up Care/Instructions Patient Instructions None needed. Anesthesia/Patient Condition Patient Condition Patient was doing well after the procedure with no complaints, stable vital signs, no apparent adverse anesthesia problems. No complications reported per nursing. JENNIFER CADET DO May 31, 2023 12:54
[2023-05-31] MEDS ORDERED: morphine INJ 10 MG/ML 1ML (SYR OR VIAL) IVP ONE (13:00)
[2023-05-31] MEDS ORDERED: HYDROmorphone INJECTION 2 MG/ML VIAL IV ONE (13:00)
[2023-05-31] MEDS ORDERED: ONDANSETRON INJECTION 4 MG/2 ML (SDV) IVP PRN (13:00)
--- NOTE | 2023-05-31 13:14 | Diagnostic Imaging Report ---
INDICATION: Fluoroscopy during intraoperative cholangiogram. Fluoroscopy was provided in the OR during intraoperative cholangiogram. 13 seconds of fluoroscopic time was utilized. Total of 66 images were obtained. Cumulative dose is 12.6 mGy. No definite opacification of the cystic duct or common bile duct is noted. IMPRESSION: Fluoroscopy during intraoperative cholangiogram. Dictated by: Dictated on workstation # [id number]
[2023-05-31] MEDS ORDERED: morphine INJ 10 MG/ML 1ML (SYR OR VIAL) ONE (13:17)
[2023-05-31] MEDS: ACETAMINOPHEN 325 MG TABLET PO PRN ×2 (19:36→20:06)
[2023-06-01 03:43] VITALS: BP 128/71
[2023-06-01] MEDS: PIPERACILLIN/Tazobactam 4.5 GM in NS (IVPB) 100 ML 100 ML IV SCH ×2 (03:44→10:45)
[2023-06-01] MEDS: NS IV 1000 ML 1,000 ML IV SCH ×2 (04:34→13:14)
--- NOTE | 2023-06-01 06:18 | Progress Note - Hospitalist ---
Subjective HPI/CC On Admission Date Seen by Provider: Jun 01, 2023 Time Seen by Provider: 09:00 Chief complaint: Acute cholecystitis HPI: This is a 68-year-old male who presented to [facility] with fever and abdominal pain found to have acute cholecystitis. He will have cholecystectomy today. IV antibiotics maintained. Labs remained stable. Subjective/Events-last exam Patient doing a lot better Had an uneventful cholecystectomy General surgery will decide whether he goes home Focused Exam Lactate Level 05/30/23 16:15: Lactic Acid Level 1.06 Objective Exam Vital Signs Vital Signs Date Time Temp Pulse Resp B/P (MAP) Pulse Ox O2 Delivery O2 Flow Rate FiO2 06/01/23 14:37 37.3 06/01/23 12:47 77 18 120/71 (87) 94 Room Air 06/01/23 07:30 0.00 Capillary Refill : Less Than 3 Seconds General Appearance: No Apparent Distress, WD/WN, Chronically ill Results/Procedures Lab Laboratory Tests 06/01/23 05:58 Patient resulted labs reviewed. Assessment/Plan Assessment and Plan Assess & Plan/Chief Complaint Acute cholecystitis status postcholecystectomy Plan: Discharge if okay with surgery Clinical Quality Measures DVT/VTE Risk/Contraindication: Contraindications-Pharm: Other *list below* Other: surgery RUKHSANA RAMOS DO Jun 01, 2023 06:18
[2023-06-01 06:20] LABS: BASOPHILS % (AUTO) 0 % (0-10); EOSINOPHILS % (AUTO) 0 % (0-10); HEMATOCRIT 32 % (40-54); HEMOGLOBIN 10.7 g/dL (13.3-17.7); LYMPHOCYTES # (AUTO) 0.9 10^3/uL (1.0-4.0); LYMPHOCYTES % (AUTO) 8 % (12-44); MEAN CORPUSCULAR HEMOGLOBIN 31 pg (25-34); MEAN CORPUSCULAR HGB CONC 33 g/dL (32-36); MEAN CORPUSCULAR VOLUME 93 fL (80-99); MEAN PLATELET VOLUME 9.9 fL (9.0-12.2); MONOCYTES # (AUTO) 1.3 10^3/uL (0.0-1.0); MONOCYTES % (AUTO) 11 % (0-12); NEUTROPHILS # (AUTO) 9.8 10^3/uL (1.8-7.8); NEUTROPHILS % (AUTO) 80 % (42-75); PLATELET COUNT 702 10^3/uL (130-400); WHITE BLOOD COUNT 12.2 10^3/uL (4.3-11.0)
[2023-06-01 06:40] LABS: ALBUMIN 3.1 GM/DL (3.2-4.5)
[2023-06-01 06:42] LABS: CALCIUM 8.5 MG/DL (8.5-10.1)
[2023-06-01 06:43] LABS: TOTAL PROTEIN 6.1 GM/DL (6.4-8.2)
[2023-06-01 06:45] LABS: BILIRUBIN,TOTAL 0.3 MG/DL (0.1-1.0)
[2023-06-01] MEDS: HYDROmorphone INJECTION 2 MG/ML VIAL IV PRN (06:45)
[2023-06-01 06:46] LABS: CREATININE SERUM 0.8 MG/DL (0.60-1.30)
[2023-06-01 07:44] VITALS: BP 115/68
[2023-06-01] MEDS: DOCUSATE SODIUM 100 MG CAPSULE PO SCH (08:49)
--- NOTE | 2023-06-01 10:14 | Progress Note - Surgery ---
TARIK BUCIO 06/01/23 1014: Subjective Date Seen by a Provider: Jun 01, 2023 Time Seen by a Provider: 09:20 Subjective/Events-last exam Marcelino Jones is feeling "ok" this morning but is still having significant pain. He rates his pain this morning an 8/10 where yesterday it was a 6/10 but still has sharp pain with palpation and coughing that makes it 10/10 pain. He did require some IV dilaudid sometime this morning before 7am. Patient is tolerating clear liquids well but also has not had much more than a couple sips of Gatorade and a cup of water, but has not had any nausea, vomiting, or abdominal distention with liquids. He has not had a bowel movement yet nor pass ed any gas. His CRISTY drain has drained 275 ml since surgery. Drains originally drained some dark red fluid initially, but the last 100ml of fluid has been serosanguinous. Incision look good with no surrounding erythema. Review of Systems General: No Chills, No Night Sweats HEENT: Head Aches (some due to pain last night and this morning but not currently. ); No Eye Pain, No Ear Pain, No Dysphasia Pulmonary: No Dyspnea; Cough Cardiovascular: No: Chest Pain, Palpitations Gastrointestinal: Abdominal Pain; No: Nausea, Vomiting Genitourinary: No Dysuria, No Frequency Focused Exam Lactate Level 05/30/23 16:15: Lactic Acid Level 1.06 Objective Exam Vital Signs Date Time Temp Pulse Resp B/P (MAP) Pulse Ox O2 Delivery O2 Flow Rate FiO2 06/01/23 07:44 36.5 95 18 115/68 (84) 95 Room Air 06/01/23 07:30 95 Room Air 0.00 06/01/23 07:00 NIV CPAP 2.00 06/01/23 03:43 36.7 72 18 128/71 (90) 98 05/31/23 23:47 36.9 70 18 118/67 (84) 98 NIV CPAP 2.00 05/31/23 21:58 2.00 05/31/23 20:23 37.7 87 18 131/72 (91) 92 Room Air 05/31/23 19:51 Room Air 05/31/23 15:21 37.9 96 18 137/63 (87) 96 NIV CPAP 2.00 05/31/23 14:22 92 NIV CPAP 2.00 05/31/23 14:19 88 Room Air 0.00 05/31/23 13:56 37.0 94 18 146/87 (106) 95 Nasal Cannula 2.50 05/31/23 13:45 Nasal Cannula 3.00 05/31/23 13:30 37.1 19 142/78 (99) 94 Nasal Cannula 3.00 05/31/23 13:30 Nasal Cannula 3.00 05/31/23 13:20 22 144/73 (96) 93 Room Air 05/31/23 13:15 Room Air 05/31/23 13:10 21 141/72 (95) 97 OxyMask 10.00 05/31/23 13:00 12 143/76 (98) 98 OxyMask 10.00 05/31/23 13:00 OxyMask 10.00 05/31/23 12:50 21 140/69 (92) 97 OxyMask 10.00 05/31/23 12:45 36.4 24 141/68 (92) 97 OxyMask 10.00 05/31/23 12:45 OxyMask 10.00 I & O 06/01/23 07:00 Intake Total 3030 ml Output Total 205 ml Balance 2825 ml Capillary Refill : Less Than 3 Seconds General Appearance: Moderate Distress (is some pain/distress with coughing or much movement but otherwies does not appear in much pain. ) HEENT: Moist Mucous Membranes; No Pharyngeal Erythema; Other (EOMI Pupils are equally round but minimally reactive to light and around 1mm in diameter) Neck: Non Tender, Supple Respiratory: Lungs Clear, Normal Breath Sounds, No Accessory Muscle Use Cardiovascular: Regular Rate, Rhythm, No Edema, No Murmur Peripheral Pulses: 3+ Dorsalis Pedis (R), 3+ Left Dors-Pedis (L), 3+ Radial Pulses (R), 3+ Radial Pulses (L) Gastrointestinal: soft, no organomegaly, tenderness (RUQ) Extremity: No Calf Tenderness, No Pedal Edema Neurologic/Psychiatric: Alert, Oriented x3 Skin: Normal Color, Warm/Dry Lymphatic: No Adenopathy (servical or supraclavicular ) Results Lab Laboratory Tests 05/31/23 10:18: SARS-CoV-2 RNA (RT-PCR) Not Detected 10/22/23 05:58: White Blood Count 12.2H, Red Blood Count 3.44L, Hemoglobin 10.7L, Hematocrit 32L , Mean Corpuscular Volume 93, Mean Corpuscular Hemoglobin 31, Mean Corpuscular Hemoglobin Concent 33, Red Cell Distribution Width 13.7, Platelet Count 702H, Mean Platelet Volume 9.9, Immature Granulocyte % (Auto) 1, Neutrophils (%) (Auto) 80H, Lymphocytes (%) (Auto) 8L, Monocytes (%) (Auto) 11, Eosinophils (%) (Auto) 0, Basophils (%) (Auto) 0, Neutrophils # (Auto) 9.8H, Lymphocytes # (Auto) 0.9L, Monocytes # (Auto) 1.3H, Eosinophils # (Auto) 0.0, Basophils # (Auto) 0.0, Immature Granulocyte # (Auto) 0.1, Sodium Level 138, Potassium Level 4.0, Chloride Level 107, Carbon Dioxide Level 21, Anion Gap 10, Blood Urea Nitrogen 17, Creatinine 0.80, Estimat Glomerular Filtration Rate 95, BUN/Creat inine Ratio 21, Glucose Level 122H, Calcium Level 8.5, Corrected Calcium 9.2, Total Bilirubin 0.3, Aspartate Amino Transf (AST/SGOT) 28, Alanine Aminotransferase (ALT/SGPT) 24, Alkaline Phosphatase 52, Total Protein 6.1L, Albumin 3.1L Microbiology 05/31/23 MRSA Screen - Final, Complete MRSA not isolated 05/30/23 Blood Culture - Preliminary, Resulted Assessment/Plan Assessment/Plan Assessment/Plan Acute Cholecystitis with Cholelithiasis s/p Cholecystectomy POD#1 HTN Plan: Continue pain medications as needed Advance diet to soft/puree food Clinical Quality Measures DVT/VTE Risk/Contraindication: Contraindications-Pharm: Other *list below* Other: surgery RHODA AGEE DO 06/01/23 1606: Subjective Time Seen by a Provider: 12:46 Subjective/Events-last exam Pt seen and examined, states he is tolerating clears without any problems. He thinks his pain is controlled. Review of Systems Pulmonary: No Dyspnea; Cough Cardiovascular: No: Chest Pain, Palpitations Gastrointestinal: Abdominal Pain; No: Nausea, Vomiting Objective Exam General Appearance: Mild Distress HEENT: Moist Mucous Membranes Respiratory: Lungs Clear, Normal Breath Sounds, No Accessory Muscle Use, No Respiratory Distress Cardiovascular: Regular Rate, Rhythm, No Murmur Gastrointestinal: soft, tenderness (mostly around incisions), other (CRISTY with serosanguinous outpu) Extremity: No Calf Tenderness Neurologic/Psychiatric: Alert Skin: Normal Color, Warm/Dry Assessment/Plan Assessment/Plan Assessment/Plan S/P Cholecystectomy POD#1 HTN Will advance diet to soft/puree food, if he tolerates will send him home. LFT's and Bili are completely normal today and no bile in drain. Will f/u in my office this week. Supervisory-Addendum Brief Verification & Attestation Participated in pt care: history, MDM, physical Personally performed: exam, history, MDM, supervision of care Care discussed with: Medical Student Procedures: n/a Verification and Attestation of Medical Student E/M Service A medical student performed and documented this service. I then reviewed and verified all information documented by the medical student and made modifications to such information, when appropriate. I personally performed a physical exam, medical decision making and then discussed any differences between the notes and made revisions as necessary to create one note. Rhoda Agee , 06/01/23 , 16:09 TARIK BUCIO Jun 01, 2023 10:14 RHODA AGEE DO Jun 01, 2023 16:06
[2023-06-01 12:47] VITALS: BP 120/71
--- NOTE | 2023-06-01 14:09 | Anesthesia-General Post-Op ---
General Patient Condition Mental Status/LOC: Same as Preop Cardiovascular: Satisfactory Nausea/Vomiting: Absent Respiratory: Satisfactory Pain: Controlled Complications: Absent Post Op Complications Complications None Follow Up Care/Instructions Patient Instructions None needed. Anesthesia/Patient Condition Patient Condition Patient is doing well, no complaints, stable vital signs, no apparent adverse anesthesia problems. No complications reported per nursing. HARINI SAMPSON CRNA Jun 01, 2023 14:09
[2023-06-01] MEDS: ACETAMINOPHEN 325 MG TABLET PO PRN (14:14)
[2023-06-01] MEDS ORDERED: OXC5T PO (15:57)
[2023-06-01] MEDS ORDERED: AMOX-355 PO (15:57)
--- NOTE | 2023-06-01 15:58 | Discharge Inst-Surgical ---
Discharge Inst-Surgical Depart Medication/Instructions New, Converted or Re-Newed RX: Transmitted to Pharmacy Patient Instructions Follow up Appt: Make appointment for 1 week. [phone] Instructions: No lifting greater than 20 pounds. No strenuous activity. May shower in 24 hours, no tub bath or soaking. Use incentive spirometer at home as directed. No Smoking Skin/Wound Care: May remove bandages in am. You need to leave the Dermabond on incision it will fall off on it's own. Symptoms to Report: Appetite Changes, Extremity Discoloration, Numbness/Tingling, Swelling Increased, Bleeding Excessive, Eyesight Changes, Pain Increased, Urine Color Change, Constipation(Persistent), Fever over 101 degree F, Pain/Pressure in chest, Urinating Difficulty, Cough Up/Vomit Blood, Heart Beat Irreg/Pounding, Pain/Pressure in jaw, Cramps in feet or legs, Lightheadedness, Pain/Pressure in shoulder, Diarrhea(Persistent), Memory Changes Suddenly, Questions/Concerns, Weight gain consecutive days, Dizziness/Fainting, Nausea/Vomiting, Shortness of Breath, Weight gain over 2 pounds If questions or concerns contact your physician Or seek help at emergency department. Activity Activity as Tolerated: Yes Activity Instructions: Avoid Stress to Incision Driving Instructions: No Driving/Refer to Diet Discharge Diet: Avoid Fatty Foods, Low Fat/Low Cholesterol Diet After 24 Hours: Clear Liquid if Nauseous If Any Problems/Questions/Issu: Contact Your Physician, Go to Emergency Room Skin/Wound Care Infection Signs and Symptoms: Increased Redness, Foul Odor of Wound, Increased Drainage, Skin Itchy or Has a Rash, Increased Swelling, Temperature Above 101 F Wound Care Comment: CRISTY drain Bathing Instructions: Shower Stitches/Wali/Dermabond Dis: Oliveabond RHODA TINOCO DO Jun 01, 2023 15:58
--- NOTE | 2023-06-01 15:58 | Discharge Summary ---
Discharge Summary Hospital Course Was the Problem List Reviewed?: Yes Problems/Dx: (1) Acute cholecystitis Status: Acute (2) Right upper quadrant abdominal pain Status: Acute Hospital Course Date of Admission: May 30, 2023 at 19:46 Admission Diagnosis : Family Physician/Provider: Alfredo Arceo MD Date of Discharge: 06/01/23 Discharge Diagnosis: [ ] Hospital Course: Short hospital course after he was admitted for IV antibiotics and pain control with IV fluids for acute cholecystitis. Uneventful cholecystectomy performed by Dr. Harvey. He was able to tolerate oral intake and he was deemed stable for discharge. Labs remained stable. Labs and Pending Lab Test: Laboratory Tests 06/01/23 05:58: White Blood Count 12.2H, Red Blood Count 3.44L, Hemoglobin 10.7L, Hematocrit 32L , Mean Corpuscular Volume 93, Mean Corpuscular Hemoglobin 31, Mean Corpuscular Hemoglobin Concent 33, Red Cell Distribution Width 13.7, Platelet Count 702H, Mean Platelet Volume 9.9, Immature Granulocyte % (Auto) 1, Neutrophils (%) (Auto) 80H, Lymphocytes (%) (Auto) 8L, Monocytes (%) (Auto) 11, Eosinophils (%) (Auto) 0, Basophils (%) (Auto) 0, Neutrophils # (Auto) 9.8H, Lymphocytes # (Auto) 0.9L, Monocytes # (Auto) 1.3H, Eosinophils # (Auto) 0.0, Basophils # (Auto) 0.0, Immature Granulocyte # (Auto) 0.1, Sodium Level 138, Potassium Level 4.0, Chloride Level 107, Carbon Dioxide Level 21, Anion Gap 10, Blood Urea Nitrogen 17, Creatinine 0.80, Estimat Glomerular Filtration Rate 95, BUN/Creatinine Ratio 21, Glucose Level 122H, Calcium Level 8.5, Corrected Calcium 9.2, Total Bilirubin 0.3, Aspartate Amino Transf (AST/SGOT) 28, Alanine Aminotransferase (ALT/SGPT) 24, Alkaline Phosphatase 52, Total Protein 6.1L, Albumin 3.1L Microbiology 05/31/23 MRSA Screen - Final, Complete MRSA not isolated 05/30/23 Blood Culture - Preliminary, Resulted Home Meds Active Augmentin 500-125 Tablet (Amoxicillin/Potassium Clav) 500 Mg-125 Mg Tablet 1 Each PO BID Oxyir Tablet (Oxycodone HCl) 5 Mg Tab 5 Mg PO Q4H PRN Reported Flonase Allergy Relief (Fluticasone Propionate) 50 Mcg/Actuation [place].susp 1 [place] NS DAILY 1 SPRAY EACH NARE DAILY Simvastatin 40 Mg Tablet 40 Mg PO HS Triamterene-Hctz 37.5-25 mg Tb (Triamterene/Hydrochlorothiazid) 37.5 Mg-25 Mg Tablet 1 Each PO DAILY Flomax (Tamsulosin HCl) 0.4 Mg Cap 0.4 Mg PO DAILY Fenofibrate 160 Mg Tablet 160 Mg PO DAILY Assessment/Pt Instructions Dr. Agee is scheduled Discharge Planning: <30 minutes discharge planning Discharge Physical Examination Vital Signs Vital Signs Date Time Temp Pulse Resp B/P (MAP) Pulse Ox O2 Delivery O2 Flow Rate FiO2 06/01/23 14:37 37.3 06/01/23 12:47 77 18 120/71 (87) 94 Room Air 06/01/23 07:30 0.00 General Appearance: No Apparent Distress, WD/WN Allergies: Coded Allergies: No Known Drug Allergies (Unverified , 05/30/23) Discharge Summary Date of Admission May 30, 2023 at 19:46 Date of Discharge Admission Diagnosis Assessment: Acute cholecystitis Abdominal pain Sepsis Hypertension Hyperlipidemia Elevated BMI Plan: Cholecystectomy IV antibiotics Supportive care I personally performed the aguero portions of the visit, discussed case with re sident and concur with resident documentation of history, physical exam, assessment and treatment plan unless otherwise noted. Discharge Diagnosis Acute cholecystitis status postcholecystectomy Plan: Discharge if okay with surgery (1) Acute cholecystitis Status: Acute (2) Right upper quadrant abdominal pain Status: Acute Clinical Quality Measures DVT/VTE Risk/Contraindication: Contraindications-Pharm: Other *list below* Other: surgery RUKHSANA RAMOS DO Jun 01, 2023 15:58
[2023-06-01 16:30] VITALS: BP 120/71
--- NOTE | 2023-06-01 17:39 | OPERATIVE REPORT ---
DATE OF SERVICE: 05/31/2023 PREOPERATIVE DIAGNOSES: Acute cholecystitis, cholelithiasis. POSTOPERATIVE DIAGNOSES: Acute cholecystitis, cholelithiasis with obstruction, hydrops of the gallbladder. PROCEDURE: Laparoscopic cholecystectomy with attempted intraoperative cholangiogram. SURGEON: Dr. Agee. JINRIKISHA DRIVER: Dr. Harvey. ANESTHESIA: General endotracheal tube. SPECIMENS: Gallbladder contents. BLOOD LOSS: Approximately 50 mL FLUIDS: Per anesthesia. POSTOPERATIVE CONDITION: Stable. INDICATIONS FOR PROCEDURE: The patient is a 68-year-old male who came in with abdominal pain been going on for a week. CAT scan showed thickened gallbladder wall and elevated white count and looked like this was acute cholecystitis, cholelithiasis. FINDINGS: The patient had very inflamed gallbladder, lot of adhesions to it. There was hydrops of the gallbladder. It looked like also some purulence, unable to get a good look at the cystic duct. DESCRIPTION OF PROCEDURE: After informed consent was obtained, the patient was brought to the operating room and placed on the table in supine position. He was sterilely prepped and draped in normal fashion. Local lidocaine used to infiltrate the skin above the umbilicus, made an incision with 11 blade, carried down through the skin into subcutaneous tissue, then deepened down to subcutaneous tissue with Bovie electrocautery down to the fascia. Fascia was incised with Bovie electrocautery, bluntly into the abdomen, swept a finger around, placed 0 Vicryl [id number] suture, then placed 11 mm trocar port under direct visualization, placed 3 more ports in normal fashion using local lidocaine, 11 blade for stab incision and VersaStep system all done under direct visualization, one subxiphoid and two in the right upper quadrant. The patient was then placed in reverse Trendelenburg, rotated left, could see that there was omentum over the top of the liver and gallbladder, carefully started peeling this away and encountered inflammation from a very inflamed gallbladder, took this down. Then, tried to grasp the fundus of the gallbladder with a grasper, made a small hole with this grasper and then clear fluid leaked out and then as well as some purulent fluid. Picture was taken. Gallbladder was taken to superior direction and then started trying to free this up, pushing with blunt dissection as well as hydrodissection to get the omentum and the small intestine away from the gallbladder, could not really see a good area to find the cystic duct, started coming across the inflammatory tissue with some Bovie electrocautery and blunt dissection, trying to get to the base of the gallbladder, continued carefully to work with this. Dr. Harvey was helping to hold the gallbladder superiorly to help delineate anatomy and unfortunately at one point, we got into the gallbladder at the base, suctioned all the fluid out and then elected to try and go through the gallbladder to try and get to the cystic duct, placed a cholangiogram catheter. We actually shot a cholangiogram 2 or 3 times and unable to get any of the contrast down. We were able to put the scope into the gallbladder itself and still had a hard time finding the cystic duct. At this point, we elected to start taking down from the top. Dr. Harvey was helping to hold the gallbladder away and pushed the liver in the superior direction, started taking down the gallbladder from the top of the liver behind in the gallbladder fossa with Bovie electrocautery coming through trying to stay in between the gallbladder and the liver, did get into the gallbladder a little bit and then because of her having so much trouble, elected to remove the top of the gallbladder, cut it off with the Bovie electrocautery and then we had the [ ] of the gallbladder opened. Again, trying to find the cystic duct, could not find it. We did find the cystic artery, this was on top of the gallbladder, clipped twice proximally and once distally and cut this, able to see almost at the bottom of the gallbladder, but could not see the cystic duct, so probably left about a centimeter and half of the distal portion of the gallbladder at Estella's pouch and after multiple attempts at trying to get a cholangiogram, we elected to use a 2-0 looped PDS to cinch across the bottom of the gallbladder above the cystic duct, cinched this down. This appeared to be in good position and then cut the loop off. Elected to leave a drain in place, placed a drain through the supraumbilical port and then pulled it out the most lateral right sided port, 5 mm port, sutured this in place with 3-0 nylon suture and then placed the patient back in the supine position, removed all ports under direct visualization, allowed pneumoperitoneum to escape. I copiously irrigated the abdomen with about 4 liters of normal saline and suctioned all of this out and again removed all ports, closed supraumbilical incision with 0 Vicryl suture previously placed, copiously irrigated all incisions with normal saline, closed them with 4-0 undyed Monocryl subcuticular stitches, placed a drain sponge around the drain. Area was cleaned and dried. Dr. Harvey helped to make some of these incisions as well as close them. The patient was then transferred to recovery room in stable condition. Sponge and needle count correct at the end of the case. Job ID: [id number] DocumentID: [id number] Dictated Date: 06/01/2023 16:59:39 Consumer Sales Representative Date: 06/01/2023 17:37:00 Dictated By: RHODA AGEE DO
== END 2023-06-01 15:56 | disposition home or self-care (01) ==
LOC: EDUNIT# 16:08 → ER FS 16:08 → 4TH 19:46 → UNDOADMOB 19:46 → 4TH 20:00 → UNDODISOB 06-01 16:35
PROVIDERS: ADMIT Internal Medicine; ATTEND Internal Medicine
DX: K81.0 Acute cholecystitis (principal); K82.8 Other specified diseases of gallbladder; I10 Essential (primary) hypertension; A41.9 Sepsis, unspecified organism; E78.5 Hyperlipidemia, unspecified; G47.33 Obstructive sleep apnea (adult) (pediatric); E66.9 Obesity, unspecified; Z68.34 Body mass index [BMI] 34.0-34.9, adult; Z20.822 Contact with and (suspected) exposure to COVID-19
CPT/HCPCS: 36415; 47562; 74177; 76000; 80053 ×3; 83605; 83690; 85007; 85025 ×2; 85027; 86141; 87040; 87081; 87636; 94760; 96361 ×3; 96366 ×3; 96374; 96375; 96376 ×2; 99284; G0378; Q9967